=== PATIENT | female | born 1970 | race Hispanic/Latino ===

== ENCOUNTER → 2023-12-23 | Day surgery (SDC) | payer BC ==
[~2023-12-23] MED LIST: ANUSOL-HC25 MG TOP; CYCLOBENZAPRINE10 MG PO; FAMOTIDINE20 MG PO; GLIPIZIDE ER5 MG PO; LACTATED RINGER'S 1,000 ML ONE; LIDOCAINE HCL 2% LOCAL INJ 5 ML SDV VIAL INJ ONE; LIPITOR10 MG PO; METFORMIN HCL500 MG PO; MIDAZOLAM HCL 2 MG/2 ML VIAL ONE; PROPOFOL IV EMULSION 10 MG/ML 20 ML VIAL ONE; VIT D2 PO
[2023-12-23 11:48] VITALS: TEMP 97.6
[2023-12-23 12:10] VITALS: BP 106/63; PULSE 87; RESP 18; O2SAT 100
== END | disposition home or self-care (01) ==
LOC: OR 10:10
PROVIDERS: ATTEND Internal Medicine Gastroenterology
DX: K59.00 Constipation, unspecified (principal); K62.5 Hemorrhage of anus and rectum; K63.5 Polyp of colon; K64.8 Other hemorrhoids; K21.9 Gastro-esophageal reflux disease without esophagitis; R10.30 Lower abdominal pain, unspecified; E11.9 Type 2 diabetes mellitus without complications; Z79.84 Long term (current) use of oral hypoglycemic drugs; F17.200 Nicotine dependence, unspecified, uncomplicated; Z79.899 Other long term (current) drug therapy; Z79.1 Long term (current) use of non-steroidal anti-inflammatories (NSAID)
CPT/HCPCS: 45384; 81025; 93005; J2003; J2250; J2704; J7121